=== PATIENT | female | born 2000 | race Caucasian/White ===

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

== ENCOUNTER 2018-06-05 09:16 | Emergency (ER) | payer BC ==
[2018-06-05 09:30] VITALS: BP 128/73
[2018-06-05] MEDS ORDERED: Sodium Chloride 0.9% 10 ML Syringe FLUSH PRN (09:32)
--- NOTE | 2018-06-05 09:42 | EDM.PDOC ---
ED HPI GENERAL MEDICAL PROBLEM - General Chief Complaint: Cardiovascular Problem Stated Complaint: HEART RACING / PG Time Seen by Provider: 06/05/18 09:25 Source of Information: Reports: Patient, Family, RN, RN Notes Reviewed History Limitations: Reports: No Limitations - History of Present Illness INITIAL COMMENTS - FREE TEXT/NARRATIVE: Pt to ER with her mother with c/o heart racing and numbness to the right side of her face when the heart begins to race. She states she also has a sharp pain in right side of the neck (carotid area) when the heart begins to bound as well. She states this began 3 days ago, and today has gotten worse, as it woke her up. She states she had brain surgery in December at [facility], Chiari decompression. Her mother states that the symptoms she is presenting with today are similar to the symptoms she was having prior to finding the chiari malformation. Patient also states she is approx. 11 weeks . She states LMP was 7-1-18. Patient denies recent illness, headaches, fever or chills, chest pains, or SOB. Denies N/V/D. Patient states she has had problems with anxiety in the past, but not recently. Patient denies numbness or tingling down the arms or hands. She states she does have numbness and tingling down the lower extremities at times but that is residual from surgery. Onset: Gradual Onset Date: 06/02/18 Quality: Reports: Sharp Severity: Moderate Improves with: Reports: None Worsens with: Reports: None Associated Symptoms: Reports: No Other Symptoms - Related Data Allergies Allergy/AdvReac Type Severity Reaction Status Date / Time codeine Allergy Vomiting Verified 06/05/18 09:45 Home Meds: Home Meds Pnv No.122/Iron/Folic Acid [ Multi Tablet] 1 tab PO DAILY 06/05/18 [ History] Past Medical History HEENT History: Reports: None Cardiovascular History: Reports: Other (See Below) Other Cardiovascular History: P.O.T.S. 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 CONTROL CLERK History: Reports: , Other (See Below) Other INVENTORY CONTROL CLERK History: pt states shes 11 weeks Musculoskeletal History: Reports: Other (See Below) Other Musculoskeletal History: RLE PAIN ANKLE/HEEL/FOOT FOR LAST 3 YEARS 12.31.15 Neurological History: Reports: Other (See Below) Other Neuro History: CHIARI, hx brain surgery Psychiatric History: Reports: None Endocrine/Metabolic History: Reports: None Hematologic History: Reports: Anemia Immunologic History: Reports: None Oncologic (Cancer) History: Reports: None Dermatologic History: Reports: Cellulitis, Other (See Below) Other Dermatologic History: ACNE; CELLULITUS OF FINGER - Infectious Disease History Infectious Disease History: Reports: None - Past Surgical History HEENT Surgical History: Reports: Adenoidectomy, Tonsillectomy Musculoskeletal Surgical History: Reports: Other (See Below) Dermatological Surgical History: Reports: Other (See Below) Social & Family History - Family History Family Medical History: Noncontributory - Caffeine Use Caffeine Use: Reports: Soda - Living Situation & Occupation Living situation: Reports: with Family Occupation: Student ED ROS GENERAL - Review of Systems Review Of Systems: ROS reveals no pertinent complaints other than HPI. ED EXAM, GENERAL - Physical Exam Exam: See Below Exam Limited By: No Limitations General Appearance: Alert, WD/WN, No Apparent Distress Eye Exam: Bilateral Eye: EOMI, Normal Inspection, PERRL (5 brisk, bilat) Ears: Normal External Exam, Hearing Grossly Normal Nose: Normal Inspection, Normal Mucosa, No Blood Throat/Mouth: Normal Inspection, Normal Lips, Normal Teeth, Normal Gums, Normal Oropharynx, Normal Voice, No Airway Compromise Head: Atraumatic, Normocephalic Neck: Normal Inspection, Supple, Non-Tender, Full Range of Motion, Other ( Patient states the sharp pain is relieved with pressure. ). No: Carotid Bruit, Lymphadenopathy (L), Lymphadenopathy (R) Respiratory/Chest: No Respiratory Distress, Lungs Clear, Normal Breath Sounds, No Accessory Muscle Use, Chest Non-Tender, Respiratory Distress Cardiovascular: Normal Peripheral Pulses, Regular Rate, Rhythm, No Edema, No Gallop, No JVD, No Murmur, No Rub, Tachycardia Peripheral Pulses: 2+: Radial (L), Radial (R) GI/Abdominal: Normal Bowel Sounds, Soft, Non-Tender (Female) Exam: Deferred Rectal (Female) Exam: Deferred Back Exam: Normal Inspection, Full Range of Motion Extremities: Normal Inspection, Normal Range of Motion, Non-Tender, No Pedal Edema, Normal Capillary Refill Neurological: Alert, Oriented, Normal Cognition, Normal Gait, Normal Reflexes, No Motor/Sensory Deficits Psychiatric: Normal Affect, Normal Mood, Anxious Skin Exam: Warm, Dry, Intact, Normal Color, No Rash Lymphatic: No Adenopathy EKG INTERPRETATION EKG Date: 06/05/18 Time: 09:33 Rhythm: Other (sinus tachycardia with PVC's) Rate (Beats/Min): 105 [place]: Normal P-Wave: Present QRS: Normal ST-T: Normal QT: Normal Comparison: Change From Previous EKG Course - Vital Signs Last Recorded V/S: Last Vital Signs Temp 97.9 F 06/05/18 09:28 Pulse 128 H 06/05/18 09:28 Resp 16 06/05/18 09:28 BP 128/73 06/05/18 09:28 Pulse Ox 98 06/05/18 09:28 - Orders/Labs/Meds Orders: Active Orders 24 hr Category Date Time Status EKG Documentation Completion [RC] STAT Care 06/05/18 09:32 Active Peripheral IV Care [RC] . DIRECTED Care 06/05/18 09:33 Active Head wo Cont [CT] Stat Exams 06/05/18 09:51 Ordered Sodium Chloride 0.9% [Saline Flush] Med 06/05/18 09:32 Active 10 ml FLUSH ASDIRECTED PRN Peripheral IV Insertion Adult [OM.PC] Stat Oth 06/05/18 09:32 Ordered Medication Orders Sodium Chloride (Saline Flush) 10 ml FLUSH ASDIRECTED PRN PRN Reason: Keep Vein Open Last Admin: 06/05/18 09:47 Dose: 10 ml Labs: Laboratory Tests 06/05/18 06/05/18 06/05/18 Range/Units 09:47 09:47 09:47 WBC (5.0-10.0) 10^3/uL RBC (4.2-5.4) 10^6/uL Hgb (12.0-16.0) g/dL Hct (37.0-47.0) % MCV (80-100) fL MCH (27.0-34.0) pg MCHC (33.0-35.0) g/dL Plt Count (150-450) 10^3/uL Neut % (Auto) (42.2-75.2) % Lymph % (Auto) (20.5-50.1) % [place] % (Auto) (2-8) % Eos % (Auto) (1.0-3.0) % Baso % (Auto) (0.0-1.0) % ESR 14 (0-20) mm/hr Sodium 135 (135-145) mmol/L Potassium 3.2 L (3.6-5.0) mmol/L Chloride 104 (101-111) mmol/L Carbon Dioxide 20.0 L (21.0-31.0) mmol/L Anion Gap 14.2 BUN 6 L (7-18) mg/dL Creatinine 0.5 L (0.6-1.3) mg/dL Est Cr Clr Drug Dosing 175.99 mL/min Estimated GFR (MDRD) > 60 BUN/Creatinine Ratio 12.00 Glucose 123 H (74-105) mg/dL Calcium 9.0 (8.4-10.2) mg/dl Total Bilirubin 0.7 (0.2-1.0) mg/dL AST 24 (10-42) IU/L ALT 10 (10-60) IU/L Alkaline Phosphatase 57 (42-121) IU/L C-Reactive Protein 0.8 (0.0-1.3) mg/dL B-Natriuretic Peptide 19 (0-100) pg/ml Total Protein 6.9 (6.7-8.2) g/dl Albumin 4.0 (3.2-5.5) g/dl Globulin 2.9 Albumin/Globulin Ratio 1.38 Urine Color (YELLOW) Urine Appearance (CLEAR) Urine pH (5.0-9.0) Ur Specific [place] (1.005-1.030) Urine Protein (NEGATIVE) Urine Glucose (UA) (NEGATIVE) Urine Ketones (NEGATIVE) Urine Occult Blood (NEGATIVE) Urine Nitrite (NEGATIVE) Urine Bilirubin (NEGATIVE) Urine Urobilinogen (0.2-1.0) mg/dL Ur Leukocyte Esterase (NEGATIVE) Urine RBC /HPF Urine WBC (0-5/HPF) /HPF Ur Epithelial Cells /HPF Amorphous Sediment (0/HPF) /HPF Urine Bacteria (0-FEW/HPF) /HPF Urine HCG, Qual Urine Opiates Screen (NEGATIVE) Ur Oxycodone Screen (NEGATIVE) Urine Methadone Screen (NEGATIVE) Ur Barbiturates Screen (NEGATIVE) U Tricyclic Antidepress (NEGATIVE) Ur Phencyclidine Scrn (NEGATIVE) Ur Amphetamine Screen (NEGATIVE) U Methamphetamines Scrn (NEGATIVE) Urine MDMA Screen (NEGATIVE) U Benzodiazepines Scrn (NEGATIVE) Urine Cocaine Screen (NEGATIVE) U Marijuana (THC) Screen (NEGATIVE) Ethyl Alcohol < 5 mg/dL 06/05/18 06/05/18 06/05/18 Range/Units 09:47 10:27 10:30 WBC 8.3 (5.0-10.0) 10^3/uL RBC 4.12 L (4.2-5.4) 10^6/uL Hgb 12.4 (12.0-16.0) g/dL Hct 36.1 L (37.0-47.0) % MCV 87.6 (80-100) fL MCH 30.1 (27.0-34.0) pg MCHC 34.3 (33.0-35.0) g/dL Plt Count 302 (150-450) 10^3/uL Neut % (Auto) 74.9 (42.2-75.2) % Lymph % (Auto) 18.6 L (20.5-50.1) % Osborne % (Auto) 5.7 (2-8) % Eos % (Auto) 0.7 L (1.0-3.0) % Baso % (Auto) 0.1 (0.0-1.0) % ESR (0-20) mm/hr Sodium (135-145) mmol/L Potassium (3.6-5.0) mmol/L Chloride (101-111) mmol/L Carbon Dioxide (21.0-31.0) mmol/L Anion Gap BUN (7-18) mg/dL Creatinine (0.6-1.3) mg/dL Est Cr Clr Drug Dosing mL/min Estimated GFR (MDRD) BUN/Creatinine Ratio Glucose (74-105) mg/dL Calcium (8.4-10.2) mg/dl Total Bilirubin (0.2-1.0) mg/dL AST (10-42) IU/L ALT (10-60) IU/L Alkaline Phosphatase (42-121) IU/L C-Reactive Protein (0.0-1.3) mg/dL B-Natriuretic Peptide (0-100) pg/ml Total Protein (6.7-8.2) g/dl Albumin (3.2-5.5) g/dl Globulin Albumin/Globulin Ratio Urine Color Yellow (YELLOW) Urine Appearance Clear (CLEAR) Urine pH 7.5 (5.0-9.0) Ur Specific [place] 1.015 (1.005-1.030) Urine Protein Negative (NEGATIVE) Urine Glucose (UA) Negative (NEGATIVE) Urine Ketones Negative (NEGATIVE) Urine Occult Blood Trace-intact H (NEGATIVE) Urine Nitrite Negative (NEGATIVE) Urine Bilirubin Negative (NEGATIVE) Urine Urobilinogen 0.2 (0.2-1.0) mg/dL Ur Leukocyte Esterase Negative (NEGATIVE) Urine RBC 0-5 /HPF Urine WBC Not seen (0-5/HPF) /HPF Ur Epithelial Cells Rare /HPF Amorphous Sediment Few (0/HPF) /HPF Urine Bacteria Rare (0-FEW/HPF) /HPF Urine HCG, Qual Positive Urine Opiates Screen (NEGATIVE) Ur Oxycodone Screen (NEGATIVE) Urine Methadone Screen (NEGATIVE) Ur Barbiturates Screen (NEGATIVE) U Tricyclic Antidepress (NEGATIVE) Ur Phencyclidine Scrn (NEGATIVE) Ur Amphetamine Screen (NEGATIVE) U Methamphetamines Scrn (NEGATIVE) Urine MDMA Screen (NEGATIVE) U Benzodiazepines Scrn (NEGATIVE) Urine Cocaine Screen (NEGATIVE) U Marijuana (THC) Screen (NEGATIVE) Ethyl Alcohol mg/dL 06/05/18 Range/Units 10:30 WBC (5.0-10.0) 10^3/uL RBC (4.2-5.4) 10^6/uL Hgb (12.0-16.0) g/dL Hct (37.0-47.0) % MCV (80-100) fL MCH (27.0-34.0) pg MCHC (33.0-35.0) g/dL Plt Count (150-450) 10^3/uL Neut % (Auto) (42.2-75.2) % Lymph % (Auto) (20.5-50.1) % [place] % (Auto) (2-8) % Eos % (Auto) (1.0-3.0) % Baso % (Auto) (0.0-1.0) % ESR (0-20) mm/hr Sodium (135-145) mmol/L Potassium (3.6-5.0) mmol/L Chloride (101-111) mmol/L Carbon Dioxide (21.0-31.0) mmol/L Anion Gap BUN (7-18) mg/dL Creatinine (0.6-1.3) mg/dL Est Cr Clr Drug Dosing mL/min Estimated GFR (MDRD) BUN/Creatinine Ratio Glucose (74-105) mg/dL Calcium (8.4-10.2) mg/dl Total Bilirubin (0.2-1.0) mg/dL AST (10-42) IU/L ALT (10-60) IU/L Alkaline Phosphatase (42-121) IU/L C-Reactive Protein (0.0-1.3) mg/dL B-Natriuretic Peptide (0-100) pg/ml Total Protein (6.7-8.2) g/dl Albumin (3.2-5.5) g/dl Globulin Albumin/Globulin Ratio Urine Color (YELLOW) Urine Appearance (CLEAR) Urine pH (5.0-9.0) Ur Specific [place] (1.005-1.030) Urine Protein (NEGATIVE) Urine Glucose (UA) (NEGATIVE) Urine Ketones (NEGATIVE) Urine Occult Blood (NEGATIVE) Urine Nitrite (NEGATIVE) Urine Bilirubin (NEGATIVE) Urine Urobilinogen (0.2-1.0) mg/dL Ur Leukocyte Esterase (NEGATIVE) Urine RBC /HPF Urine WBC (0-5/HPF) /HPF Ur Epithelial Cells /HPF Amorphous Sediment (0/HPF) /HPF Urine Bacteria (0-FEW/HPF) /HPF Urine HCG, Qual Urine Opiates Screen Negative (NEGATIVE) Ur Oxycodone Screen Negative (NEGATIVE) Urine Methadone Screen Negative (NEGATIVE) Ur Barbiturates Screen Negative (NEGATIVE) U Tricyclic Antidepress Negative (NEGATIVE) Ur Phencyclidine Scrn Negative (NEGATIVE) Ur Amphetamine Screen Negative (NEGATIVE) U Methamphetamines Scrn Negative (NEGATIVE) Urine MDMA Screen Negative (NEGATIVE) U Benzodiazepines Scrn Negative (NEGATIVE) Urine Cocaine Screen Negative (NEGATIVE) U Marijuana (THC) Screen Negative (NEGATIVE) Ethyl Alcohol mg/dL Meds: Medications Generic Name Dose Route Start Last Admin Trade Name Freq PRN Reason Stop Dose Admin Sodium Chloride 10 ml 06/05/18 09:32 06/05/18 09:47 Saline Flush FLUSH 10 ml ASDIRECTED PRN Administration Keep Vein Open Discontinued Medications Generic Name Dose Route Start Last Admin Trade Name Freq PRN Reason Stop Dose Admin Sodium Chloride 1,000 mls @ 999 mls/hr 06/05/18 09:44 06/05/18 09:47 Normal Saline IV 06/05/18 10:44 999 mls/hr .BOLUS ONE Administration - Re-Assessments/Exams Free Text/Narrative Re-Assessment/Exam: 06/05/18 11:17 Discussed Patient case with Dr. Thacker in Neurosurgery at [facility]. He discussed the patient case with the Neurosurgery team and states and MRI/MRA of the head and neck would be appropriate today or tomorrow. The patient does not have a PCP here in [place], and has just recently established care with Dr. Murdock, whom is out of the office for 2 weeks. Discussed patient case with Dr. Clayton in pediatrics at [facility] who states the patient should be seen by Rabia Adam at [facility] tomorrow AM. She has also been scheduled for MRI/MRA. Patient and mother agree to the proceeding appointments and plans and state understanding. Departure - Departure Time of Disposition: 11:20 Disposition: Home, Self-Care 01 Condition: Fair Clinical Impression: Tachycardia, Numbness and tingling of right face, POTS (postural orthostatic tachycardia syndrome) Qualifiers: Weeks of gestation: 11 weeks Qualified Code(s): Z3A.11 - 11 weeks gestation of Forms: ED Department Discharge Additional Instructions: Follow up with Rabia Adam at [facility] tomorrow AM at 8AM. Drink plenty of water Present to the nearest ER if any symptoms worsen. - My Orders Last 24 Hours: My Active Orders 06/05/18 09:32 EKG Documentation Completion [RC] STAT Sodium Chloride 0.9% [Saline Flush] 10 ml FLUSH ASDIRECTED PRN Peripheral IV Insertion Adult [OM.PC] Stat 06/05/18 09:33 Peripheral IV Care [RC] . DIRECTED 06/05/18 09:51 Head wo Cont [CT] Stat - Assessment/Plan Last 24 Hours: My Active Orders 06/05/18 09:32 EKG Documentation Completion [RC] STAT Sodium Chloride 0.9% [Saline Flush] 10 ml FLUSH ASDIRECTED PRN Peripheral IV Insertion Adult [OM.PC] Stat 06/05/18 09:33 Peripheral IV Care [RC] . DIRECTED 06/05/18 09:51 Head wo Cont [CT] Stat
[2018-06-05] MEDS ORDERED: Sodium Chloride 0.9% 1,000 ML IV ONE (09:44)
[2018-06-05 10:12] LABS: ANION GAP 14.2; CHLORIDE,CL 104 mmol/L (101-111); SODIUM,NA 135 mmol/L (135-145)
--- NOTE | 2018-06-08 14:13 | EKG ---
06/05/2018 - ESSENCE ZAMORA - TIME: 9:33 a.m. FINDINGS: As per reading, sinus tachycardia at 105. MOD /[id number]
--- NOTE | 2018-06-08 14:25 | EKG ---
06/05/2018 - ESSENCE ZAMORA - TIME: 9:33 p.m. FINDINGS: Sinus tachycardia with multiple ventricular premature complexes. [facility] /[id number]
== END 2018-06-05 11:31 | disposition home or self-care (01) ==
LOC: DL.ED 09:16
DX: O99.511 Diseases of the respiratory system complicating pregnancy, first trimester (principal); I49.8 Other specified cardiac arrhythmias; O99.89 Other specified diseases and conditions complicating pregnancy, childbirth and the puerperium; R20.0 Anesthesia of skin; Z88.5 Allergy status to narcotic agent; Z3A.11 11 weeks gestation of pregnancy
CPT/HCPCS: 36415; 80053; 80305; 81001; 81025; 83880; 85025; 85651; 86140; 93005; 96360; 96361; 99285; G0480; J7030; J7050

== ENCOUNTER 2019-01-04 19:31 | Emergency (ER) | payer BC ==
[2019-01-04] MEDS ORDERED: Ondansetron 4 MG/2 ML SDV IV ONE (20:18)
[2019-01-04] MEDS ORDERED: fentaNYL 100 MCG/2 ML SDV IVPUSH ONE ×2 (20:18→22:45)
[2019-01-04] MEDS ORDERED: Sodium Chloride 0.9% 1,000 ML IV ONE (20:18)
--- NOTE | 2019-01-04 20:23 | EDM.PDOC ---
ED HPI GENERAL MEDICAL PROBLEM - General Chief Complaint: Fever Stated Complaint: C SECTION , HIGH FEVER [id number] Time Seen by Provider: 01/04/19 20:19 Source of Information: Reports: Patient History Limitations: Reports: No Limitations - History of Present Illness INITIAL COMMENTS - FREE TEXT/NARRATIVE: s/p Saturday, was doing fine till back pain problem got worse, today developed fever. appetite normal without vomiting Lower Back Pain Score (Numeric/FACES): 6 - Related Data Allergies Allergy/AdvReac Type Severity Reaction Status Date / Time codeine Allergy Vomiting Verified 01/04/19 20:46 hydrocodone Allergy Vomiting Verified 01/04/19 20:46 hydromorphone Allergy Vomiting Verified 01/04/19 20:46 Home Meds: Home Meds Acetaminophen [Tylenol Extra Strength] 500 mg PO DAILY PRN 12/17/18 [History] Past Medical History HEENT History: Reports: None Cardiovascular History: Reports: Other (See Below) Other Cardiovascular History: P.O.T.S. 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[employer] GATE CUTTER History: Reports: , Other (See Below) Other GATE CUTTER History: pt states shes 11 weeks Musculoskeletal History: Reports: Other (See Below) Other Musculoskeletal History: RLE PAIN ANKLE/HEEL/FOOT FOR LAST 3 YEARS 12.31.15 Neurological History: Reports: Other (See Below) Other Neuro History: CHIARI, hx brain surgery Psychiatric History: Reports: Anxiety Endocrine/Metabolic History: Reports: None Hematologic History: Reports: Anemia Immunologic History: Reports: None Oncologic (Cancer) History: Reports: None Dermatologic History: Reports: Cellulitis, Other (See Below) Other Dermatologic History: ACNE; CELLULITUS OF FINGER - Infectious Disease History Infectious Disease History: Reports: None - Past Surgical History Head Surgeries/Procedures: Reports: None HEENT Surgical History: Reports: Adenoidectomy, Tonsillectomy Cardiovascular Surgical History: Reports: None Female Surgical History: Reports: None Musculoskeletal Surgical History: Reports: Other (See Below) Oncologic Surgical History: Reports: None Dermatological Surgical History: Reports: Other (See Below) Social & Family History - Family History Family Medical History: Noncontributory - Caffeine Use Caffeine Use: Reports: Soda - Living Situation & Occupation Living situation: Reports: with Family Occupation: Student ED ROS GENERAL - Review of Systems Review Of Systems: ROS reveals no pertinent complaints other than HPI. ED EXAM, GENERAL - Physical Exam Exam: See Below Exam Limited By: No Limitations General Appearance: Alert, WD/WN, Mild Distress, Other (discomfort, tearful) Ears: Hearing Grossly Normal Throat/Mouth: Normal Voice, No Airway Compromise Head: Atraumatic Neck: Non-Tender, Full Range of Motion Respiratory/Chest: No Respiratory Distress Cardiovascular: Regular Rate, Rhythm GI/Abdominal: Other ( scar without s/s cellulitis) Neurological: Alert, Oriented, Normal Cognition, Normal Gait, No Motor/Sensory Deficits Psychiatric: Tearful Skin Exam: Warm, Dry, Normal Color Lymphatic: No Adenopathy Course - Vital Signs Last Recorded V/S: Last Vital Signs Temp 37.1 C 01/04/19 23:48 Pulse 111 H 01/04/19 23:48 Resp 17 01/04/19 23:48 BP 126/69 01/04/19 23:48 Pulse Ox 96 01/04/19 23:48 - Orders/Labs/Meds Orders: Active Orders 24 hr Category Date Time Status CULTURE BLOOD [BC] Stat Lab 01/04/19 20:18 Received CULTURE URINE [RM] Stat Lab 01/04/19 21:30 Received Sodium Chloride 0.9% [Normal Saline] 1,000 ml Med 01/04/19 22:15 Active IV ASDIRECTED cefTRIAXone [Rocephin] 1 gm Med 01/05/19 00:21 Ordered Sodium Chloride 0.9% [Normal Saline] 50 ml IV ONETIME Medication Orders Sodium Chloride (Normal Saline) 1,000 mls @ 500 mls/hr IV ASDIRECTED LA Last Admin: 01/04/19 22:38 Dose: 500 mls/hr Labs: Laboratory Tests 01/04/19 01/04/19 01/04/19 Range/Units 20:18 20:18 20:18 WBC 10.5 H (5.0-10.0) 10^3/uL RBC 3.47 L (4.2-5.4) 10^6/uL Hgb 9.1 L D (12.0-16.0) g/dL Hct 28.6 L (37.0-47.0) % MCV 82.4 D (80-100) fL MCH 26.2 L (27.0-34.0) pg MCHC 31.8 L (33.0-35.0) g/dL Plt Count 281 (150-450) 10^3/uL Neut % (Auto) 80.8 H (42.2-75.2) % Lymph % (Auto) 11.1 L (20.5-50.1) % Crosby % (Auto) 6.6 (2-8) % Eos % (Auto) 1.2 (1.0-3.0) % Baso % (Auto) 0.3 (0.0-1.0) % Add Manual Diff Yes Neutrophils % (Manual) 82 H (42-75) % Lymphocytes % (Manual) 13 L (20-50) % Monocytes % (Manual) 4 (2-8) % Eosinophils % (Manual) 1 (1-3) % Sodium 135 (135-145) mmol/L Potassium 3.3 L (3.6-5.0) mmol/L Chloride 103 (101-111) mmol/L Carbon Dioxide 20.0 L (21.0-31.0) mmol/L Anion Gap 15.3 BUN 9 (7-18) mg/dL Creatinine 0.7 (0.6-1.3) mg/dL Est Cr Clr Drug Dosing TNP Estimated GFR (MDRD) > 60 BUN/Creatinine Ratio 12.85 Glucose 97 (74-105) mg/dL Lactic Acid 1.8 (0.5-2.2) mmol/L Calcium 8.8 (8.4-10.2) mg/dl Total Bilirubin 0.5 (0.2-1.0) mg/dL AST 23 (10-42) IU/L ALT 17 (10-60) IU/L Alkaline Phosphatase 102 (42-121) IU/L Total Protein 6.1 L (6.7-8.2) g/dl Albumin 2.9 L (3.2-5.5) g/dl Globulin 3.2 Albumin/Globulin Ratio 0.91 Urine Color (YELLOW) Urine Appearance (CLEAR) Urine pH (5.0-9.0) Ur Specific Barbeau (1.005-1.030) Urine Protein (NEGATIVE) Urine Glucose (UA) (NEGATIVE) Urine Ketones (NEGATIVE) Urine Occult Blood (NEGATIVE) Urine Nitrite (NEGATIVE) Urine Bilirubin (NEGATIVE) Urine Urobilinogen (0.2-1.0) mg/dL Ur Leukocyte Esterase (NEGATIVE) Urine RBC /HPF Urine WBC (0-5/HPF) /HPF Ur Epithelial Cells /HPF Urine Bacteria (0-FEW/HPF) /HPF Urine Mucus /LPF Urinalysis Comment 01/04/19 Range/Units 21:30 WBC (5.0-10.0) 10^3/uL RBC (4.2-5.4) 10^6/uL Hgb (12.0-16.0) g/dL Hct (37.0-47.0) % MCV (80-100) fL MCH (27.0-34.0) pg MCHC (33.0-35.0) g/dL Plt Count (150-450) 10^3/uL Neut % (Auto) (42.2-75.2) % Lymph % (Auto) (20.5-50.1) % Crosby % (Auto) (2-8) % Eos % (Auto) (1.0-3.0) % Baso % (Auto) (0.0-1.0) % Add Manual Diff Neutrophils % (Manual) (42-75) % Lymphocytes % (Manual) (20-50) % Monocytes % (Manual) (2-8) % Eosinophils % (Manual) (1-3) % Sodium (135-145) mmol/L Potassium (3.6-5.0) mmol/L Chloride (101-111) mmol/L Carbon Dioxide (21.0-31.0) mmol/L Anion Gap BUN (7-18) mg/dL Creatinine (0.6-1.3) mg/dL Est Cr Clr Drug Dosing Estimated GFR (MDRD) BUN/Creatinine Ratio Glucose (74-105) mg/dL Lactic Acid (0.5-2.2) mmol/L Calcium (8.4-10.2) mg/dl Total Bilirubin (0.2-1.0) mg/dL AST (10-42) IU/L ALT (10-60) IU/L Alkaline Phosphatase (42-121) IU/L Total Protein (6.7-8.2) g/dl Albumin (3.2-5.5) g/dl Globulin Albumin/Globulin Ratio Urine Color Yellow (YELLOW) Urine Appearance Slightly cloudy (CLEAR) Urine pH 8.5 (5.0-9.0) Ur Specific [place] 1.015 (1.005-1.030) Urine Protein Negative (NEGATIVE) Urine Glucose (UA) Negative (NEGATIVE) Urine Ketones Negative (NEGATIVE) Urine Occult Blood Large H (NEGATIVE) Urine Nitrite Negative (NEGATIVE) Urine Bilirubin Negative (NEGATIVE) Urine Urobilinogen 0.2 (0.2-1.0) mg/dL Ur Leukocyte Esterase Small H (NEGATIVE) Urine RBC 30-40 H /HPF Urine WBC 10-20 H (0-5/HPF) /HPF Ur Epithelial Cells Moderate H /HPF Urine Bacteria Moderate H (0-FEW/HPF) /HPF Urine Mucus Few H /LPF Urinalysis Comment Meds: Medications Generic Name Dose Route Start Last Admin Trade Name Freq PRN Reason Stop Dose Admin Sodium Chloride 1,000 mls @ 500 mls/hr 01/04/19 22:15 01/04/19 22:38 Normal Saline IV 500 mls/hr ASDIRECTED LA Administration Discontinued Medications Generic Name Dose Route Start Last Admin Trade Name Freq PRN Reason Stop Dose Admin Acetaminophen 325 mg 01/04/19 20:55 01/04/19 21:06 Tylenol PO 01/04/19 20:56 325 mg NOW ONE Administration Fentanyl 25 mcg 01/04/19 20:18 01/04/19 21:45 Sublimaze IVPUSH 01/04/19 20:19 Not Given ONETIME ONE Fentanyl 50 mcg 01/04/19 20:57 01/04/19 21:05 Sublimaze IM 01/04/19 20:58 50 mcg ONETIME ONE Administration Fentanyl 25 mcg 01/04/19 22:45 01/04/19 22:49 Sublimaze IVPUSH 01/04/19 22:46 25 mcg ONETIME ONE Administration Sodium Chloride 1,000 mls @ 999 mls/hr 01/04/19 20:18 01/04/19 21:12 Normal Saline IV 01/04/19 21:18 999 mls/hr .BOLUS ONE Administration Ibuprofen 600 mg 01/04/19 22:11 01/04/19 22:26 Motrin PO 01/04/19 22:12 600 mg ONETIME ONE Administration Iopamidol 100 ml 01/04/19 21:54 01/04/19 22:04 Isovue-300 (61%) IVPUSH 01/04/19 21:55 100 ml ONETIME ONE Administration Morphine Sulfate 4 mg 01/04/19 23:32 01/04/19 23:42 Morphine IVPUSH 01/04/19 23:33 4 mg ONETIME ONE Administration Ondansetron HCl 4 mg 01/04/19 20:18 01/04/19 21:15 Zofran IV 01/04/19 20:19 4 mg ONETIME ONE Administration - Re-Assessments/Exams Free Text/Narrative Re-Assessment/Exam: 01/05/19 00:[address] Almeida [facility] @ who kindly accepted pt as a consult. Dr Marlow admitted pt. Departure - Departure Time of Disposition: 00:23 ( ) Disposition: DC/Tfer to [facility] 02 Condition: Fair Clinical Impression: Hydroureteronephrosis UTI (urinary tract infection) Qualifiers: Urinary tract infection type: site unspecified Hematuria presence: with hematuria Qualified Code(s): N39.0 - Urinary tract infection, site not specified ; R31.9 - Hematuria, unspecified - Discharge Information Forms: Interfacility Transfer EMTALA - My Orders Last 24 Hours: My Active Orders 01/04/19 20:18 CULTURE BLOOD [BC] Stat 01/04/19 21:30 CULTURE URINE [RM] Stat 01/04/19 22:15 Sodium Chloride 0.9% [Normal Saline] 1,000 ml IV ASDIRECTED 01/05/19 00:21 cefTRIAXone [Rocephin] 1 gm Sodium Chloride 0.9% [Normal Saline] 50 ml IV ONETIME - Assessment/Plan Last 24 Hours: My Active Orders 01/04/19 20:18 CULTURE BLOOD [BC] Stat 01/04/19 21:30 CULTURE URINE [RM] Stat 01/04/19 22:15 Sodium Chloride 0.9% [Normal Saline] 1,000 ml IV ASDIRECTED 01/05/19 00:21 cefTRIAXone [Rocephin] 1 gm Sodium Chloride 0.9% [Normal Saline] 50 ml IV ONETIME
[2019-01-04 20:47] LABS: ANION GAP 15.3; CHLORIDE,CL 103 mmol/L (101-111); SODIUM,NA 135 mmol/L (135-145)
[2019-01-04] MEDS ORDERED: Acetaminophen 325 MG Tab PO ONE (20:55)
[2019-01-04] MEDS ORDERED: fentaNYL 100 MCG/2 ML SDV IM ONE (20:57)
--- NOTE | 2019-01-04 21:22 | PCM.PRNOTE ---
- Free Text/Narrative Note: Consulted by ED to insert an IV on a patient who has had multiple attempts by RN. Upon entering room, pt is lying on a stretcher with c/o back pain. A tourniquet was applied to the left forearm. The left wrist was cleaned with alcohol. Using a 22 gauge angiocath, an IV was inserted into the left wrist ( radial) on first attempt. Excellent blood return. IV flushes without difficulty. IV was covered with tegaderm and secured with tape. RN was notified. Procedure Date and Time: 01/04/[id number]
[2019-01-04] MEDS ORDERED: Iopamidol 612 MG/ML 100 ML Bottle IVPUSH ONE (21:54)
[2019-01-04] MEDS ORDERED: Ibuprofen 600 MG Tab PO ONE (22:11)
[2019-01-04] MEDS ORDERED: Sodium Chloride 0.9% 1,000 ML IV SCH (22:15)
[2019-01-04] MEDS ORDERED: Morphine 4 MG/ML Syringe IVPUSH ONE (23:32)
[2019-01-05] MEDS ORDERED: cefTRIAXone 1 GM in Sodium Chloride 0.9% 50 ML IV ONE (00:21)
[2019-01-05 00:36] VITALS: BP 126/78
[2019-01-05] MEDS ORDERED: Morphine 4 MG/ML Syringe IVPUSH ONE (01:15)
[2019-01-05] MEDS ORDERED: Sodium Chloride 0.9% 1,000 ML IV SCH (02:00)
== END 2019-01-05 02:11 ==
LOC: DL.ED 19:31
DX: O86.20 Urinary tract infection following delivery, unspecified (principal); O99.89 Other specified diseases and conditions complicating pregnancy, childbirth and the puerperium; N13.2 Hydronephrosis with renal and ureteral calculous obstruction; Z79.899 Other long term (current) drug therapy; Z88.5 Allergy status to narcotic agent; Z88.6 Allergy status to analgesic agent
CPT/HCPCS: 36415; 74177; 80053; 81001; 83605; 85025; 87040; 87086; 96361; 96372; 96374; 96375; 96376; 99283-25; A9270-GY; J0696; J2270; J2405; J3010; J7030; J7050; Q9967

== ENCOUNTER 2019-03-03 09:24 | Emergency (ER) | payer BC ==
[~2019-03-03 09:24] MED LIST: Dexamethasone 4 MG/ML SDV IVPUSH ONE; Morphine 4 MG/ML Syringe IVPUSH ONE; Ondansetron 4 MG/2 ML SDV IV ONE; Sodium Chloride 0.9% 1,000 ML IV ONE; Sodium Chloride 0.9% 10 ML Syringe FLUSH PRN
--- NOTE | 2019-03-03 09:30 | EDM.PDOC ---
<Ivette Alfaro - Last Filed: 03/03/19 14:41> ED HPI GENERAL MEDICAL PROBLEM - General Chief Complaint: Headache Stated Complaint: Severe headache Time Seen by Provider: 03/03/19 09:24 Source of Information: Reports: Patient, EMS History Limitations: Reports: No Limitations - History of Present Illness INITIAL COMMENTS - FREE TEXT/NARRATIVE: Patient arrives to ER with CC of sudden onset headache. Patient reports that she had just clocked into work when she started to feel dizzy. Patient states that she then "Tripped' at work and "almita her neck", but denies any injury or hitting her head. Patient denies any nausea/vomiting, recent illness, vision changes,trauma, numbness/tingling of extremities. Patient reports that pain is primarily located to the base of her skull into her neck, rates "07/02". Patient has hx of POTS, Chiari Malformation with surgical repair (01/08), migraine headaches, and recent diagnosis of pituitary tumor. Patient reports that this headache is different than previous headaches, because she "didn't feel good before". According to patient's mother, Liya, she has been experiencing headaches recently for past several weeks and has been in contact with her surgeon in [place], Dr. Lucero. Per mothers report patient's headaches have been increasing in frequency, duration, and intensity. Patient was previous smoker, quit when finding out she was in 2018. Delivered C- Section 12/29/2018. Dr. Lucero contact information: [phone] Onset: Today Onset Date: 03/03/19 Onset Time: 09:00 Location: Reports: Head (posterior base of skull), Neck Quality: Reports: Ache Severity: Severe Improves with: Reports: Other (knees bent) Treatments PEDIATRIC LPN: Reports: Other Medication(s) (Morphine 2mg enroute via paramedics) Neck Pain Score (Numeric/FACES): 9 - Related Data Allergies Allergy/AdvReac Type Severity Reaction Status Date / Time codeine Allergy Vomiting Verified 01/04/19 20:46 hydrocodone Allergy Vomiting Verified 01/04/19 20:46 hydromorphone Allergy Vomiting Verified 01/04/19 20:46 Home Meds: Home Meds Acetaminophen [Tylenol Extra Strength] 500 mg PO DAILY PRN 12/17/18 [History] Past Medical History HEENT History: Reports: None Cardiovascular History: Reports: Other (See Below) Other Cardiovascular History: P.O.T.S. 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CTER DYSSYNERGIA SLACKMAN History: Reports: , Other (See Below) Other SLACKMAN History: pt states shes 11 weeks Musculoskeletal History: Reports: Other (See Below) Other Musculoskeletal History: RLE PAIN ANKLE/HEEL/FOOT FOR LAST 3 YEARS 09.22.15 Neurological History: Reports: Other (See Below) Other Neuro History: CHIARI, hx brain surgery Psychiatric History: Reports: Anxiety Endocrine/Metabolic History: Reports: None Hematologic History: Reports: Anemia Immunologic History: Reports: None Oncologic (Cancer) History: Reports: None Dermatologic History: Reports: Cellulitis, Other (See Below) Other Dermatologic History: ACNE; CELLULITUS OF FINGER - Infectious Disease History Infectious Disease History: Reports: None - Past Surgical History Head Surgeries/Procedures: Reports: None HEENT Surgical History: Reports: Adenoidectomy, Tonsillectomy Cardiovascular Surgical History: Reports: None Female Surgical History: Reports: None Musculoskeletal Surgical History: Reports: Other (See Below) Oncologic Surgical History: Reports: None Dermatological Surgical History: Reports: Other (See Below) Social & Family History - Family History Family Medical History: Noncontributory - Caffeine Use Caffeine Use: Reports: Soda - Living Situation & Occupation Living situation: Reports: with Family Occupation: Student ED ROS GENERAL - Review of Systems Review Of Systems: ROS reveals no pertinent complaints other than HPI. - Physical Exam Exam: See Below Exam Limited By: No Limitations General Appearance: Alert, Anxious, Moderate Distress Eye Exam: Bilateral Eye: EOMI, Normal Inspection, Nystagmus (negative for nystagmus), PERRL, Vision Changes (negative for vision changes) Ears: Normal External Exam, Normal Canal, Hearing Grossly Normal, Normal TMs Nose: Normal Inspection, Normal Mucosa, No Blood Throat/Mouth: Normal Inspection, Normal Lips, Normal Teeth, Normal Gums, Normal Oropharynx, Normal Voice, No Airway Compromise Head Exam: Atraumatic, Normocephalic, Scalp Tenderness (posterior base of skull) Neck: Normal Inspection, Limited Range of Motion, Tender Lateral, Tender Midline Respiratory/Chest: Lungs Clear, Normal Breath Sounds, No Accessory Muscle Use, Chest Non-Tender, Other (tachypeic) Cardiovascular: Normal Peripheral Pulses, Regular Rate, Rhythm, No Edema, No Gallop, No JVD, No Murmur, No Rub GI/Abdominal: Normal Bowel Sounds, Soft, Non-Tender, No Organomegaly, No Distention, No Abnormal Bruit, No Mass, Other (c-sectio scar) Neuro Exam (Abbreviated): Alert, Oriented, CN II-XII Intact, Normal Cognition, Normal Gait, Normal Reflexes, No Motor/Sensory Deficits Back Exam: Normal Inspection, Full Range of Motion, NT Extremities: Normal Inspection, Normal Range of Motion, Non-Tender, No Pedal Edema, Normal Capillary Refill Psychiatric: Anxious, Tearful Skin Exam: Warm, Dry, Intact, Normal Color, No Rash Course - Vital Signs Last Recorded V/S: Last Vital Signs Temp 97.4 F 03/03/19 13:38 Pulse 81 03/03/19 13:38 Resp 18 03/03/19 13:38 BP 121/66 03/03/19 13:38 Pulse Ox 97 03/03/19 13:38 - Orders/Labs/Meds Orders: Active Orders 24 hr Category Date Time Status Peripheral IV Care [RC] . DIRECTED Care 03/03/19 09:18 Active Brain w Cont [MR] Stat Exams 03/03/19 09:53 Taken Cervical Spine Comp w Cont [MR] Stat Exams 03/03/19 10:24 Taken Sodium Chloride 0.9% [Saline Flush] Med 03/03/19 09:18 Active 10 ml FLUSH ASDIRECTED PRN Peripheral IV Insertion Adult [OM.PC] Stat Oth 03/03/19 09:17 Ordered Medication Orders Sodium Chloride (Saline Flush) 10 ml FLUSH ASDIRECTED PRN PRN Reason: Keep Vein Open Labs: Laboratory Tests 03/03/19 03/03/19 03/03/19 Range/Units 09:50 09:50 09:50 WBC 6.5 (5.0-10.0) 10^3/uL RBC 4.34 (4.2-5.4) 10^6/uL Hgb 10.6 L D (12.0-16.0) g/dL Hct 33.3 L (37.0-47.0) % MCV 76.7 L D (80-100) fL MCH 24.4 L (27.0-34.0) pg MCHC 31.8 L (33.0-35.0) g/dL Plt Count 270 (150-450) 10^3/uL Neut % (Auto) 55.8 (42.2-75.2) % Lymph % (Auto) 33.5 (20.5-50.1) % [place] % (Auto) 9.0 H (2-8) % Eos % (Auto) 1.4 (1.0-3.0) % Baso % (Auto) 0.3 (0.0-1.0) % Sodium 137 (135-145) mmol/L Potassium 3.9 (3.6-5.0) mmol/L Chloride 106 (101-111) mmol/L Carbon Dioxide 20.0 L (21.0-31.0) mmol/L Anion Gap 14.9 BUN 10 (7-18) mg/dL Creatinine 0.7 (0.6-1.3) mg/dL Est Cr Clr Drug Dosing 124.67 mL/min Estimated GFR (MDRD) > 60 BUN/Creatinine Ratio 14.28 Glucose 92 (74-105) mg/dL Calcium 9.0 (8.4-10.2) mg/dl Total Bilirubin 0.5 (0.2-1.0) mg/dL AST 28 (10-42) IU/L ALT 21 (10-60) IU/L Alkaline Phosphatase 67 (42-121) IU/L C-Reactive Protein 0.6 (0.0-1.3) mg/dL Total Protein 6.6 L (6.7-8.2) g/dl Albumin 3.9 (3.2-5.5) g/dl Globulin 2.7 Albumin/Globulin Ratio 1.44 Urine Color (YELLOW) Urine Appearance (CLEAR) Urine pH (5.0-9.0) Ur Specific [place] (1.005-1.030) Urine Protein (NEGATIVE) Urine Glucose (UA) (NEGATIVE) Urine Ketones (NEGATIVE) Urine Occult Blood (NEGATIVE) Urine Nitrite (NEGATIVE) Urine Bilirubin (NEGATIVE) Urine Urobilinogen (0.2-1.0) mg/dL Ur Leukocyte Esterase (NEGATIVE) Urine HCG, Qual 03/03/19 03/03/19 Range/Units 10:23 10:23 WBC (5.0-10.0) 10^3/uL RBC (4.2-5.4) 10^6/uL Hgb (12.0-16.0) g/dL Hct (37.0-47.0) % MCV (80-100) fL MCH (27.0-34.0) pg MCHC (33.0-35.0) g/dL Plt Count (150-450) 10^3/uL Neut % (Auto) (42.2-75.2) % Lymph % (Auto) (20.5-50.1) % [place] % (Auto) (2-8) % Eos % (Auto) (1.0-3.0) % Baso % (Auto) (0.0-1.0) % Sodium (135-145) mmol/L Potassium (3.6-5.0) mmol/L Chloride (101-111) mmol/L Carbon Dioxide (21.0-31.0) mmol/L Anion Gap BUN (7-18) mg/dL Creatinine (0.6-1.3) mg/dL Est Cr Clr Drug Dosing mL/min Estimated GFR (MDRD) BUN/Creatinine Ratio Glucose (74-105) mg/dL Calcium (8.4-10.2) mg/dl Total Bilirubin (0.2-1.0) mg/dL AST (10-42) IU/L ALT (10-60) IU/L Alkaline Phosphatase (42-121) IU/L C-Reactive Protein (0.0-1.3) mg/dL Total Protein (6.7-8.2) g/dl Albumin (3.2-5.5) g/dl Globulin Albumin/Globulin Ratio Urine Color Yellow (YELLOW) Urine Appearance Clear (CLEAR) Urine pH 7.0 (5.0-9.0) Ur Specific [place] 1.015 (1.005-1.030) Urine Protein Negative (NEGATIVE) Urine Glucose (UA) Negative (NEGATIVE) Urine Ketones Negative (NEGATIVE) Urine Occult Blood Negative (NEGATIVE) Urine Nitrite Negative (NEGATIVE) Urine Bilirubin Negative (NEGATIVE) Urine Urobilinogen 0.2 (0.2-1.0) mg/dL Ur Leukocyte Esterase Negative (NEGATIVE) Urine HCG, Qual Negative Meds: Medications Generic Name Dose Route Start Last Admin Trade Name Thao PRN Reason Stop Dose Admin Sodium Chloride 10 ml 03/03/19 09:18 Saline Flush FLUSH ASDIRECTED PRN Keep Vein Open Discontinued Medications Generic Name Dose Route Start Last Admin Trade Name Thao PRN Reason Stop Dose Admin Dexamethasone 20 mg 03/03/19 09:19 03/03/19 09:30 Dexamethasone IVPUSH 03/03/19 09:20 20 mg ONETIME ONE Administration Gadobenate Dimeglumine 20 ml 03/03/19 10:01 03/03/19 11:56 Multihance IVPUSH 03/03/19 10:02 20 ml ONETIME ONE Administration Sodium Chloride 1,000 mls @ 999 mls/hr 03/03/19 09:19 03/03/19 13:34 Normal Saline IV 03/03/19 10:19 Not Given .BOLUS ONE Morphine Sulfate 4 mg 03/03/19 09:18 03/03/19 09:28 Morphine IVPUSH 03/03/19 09:19 4 mg ONETIME ONE Administration Morphine Sulfate 4 mg 03/03/19 09:45 03/03/19 09:50 Morphine IVPUSH 03/03/19 09:46 4 mg ONETIME ONE Administration Morphine Sulfate 2 mg 03/03/19 10:17 03/03/19 10:25 Morphine IVPUSH 03/03/19 10:18 2 mg ONETIME ONE Administration Morphine Sulfate 4 mg 03/03/19 12:31 03/03/19 12:41 Morphine IVPUSH 03/03/19 12:32 4 mg ONETIME ONE Administration Ondansetron HCl 4 mg 03/03/19 09:18 03/03/19 09:26 Zofran IV 03/03/19 09:19 4 mg ONETIME ONE Administration - Radiology Interpretation Free Text/Narrative:: CT HEAD WITHOUT CONTRAST: Status post surgery for Chiari malformation. 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 MRI of the cervical spine could further evaluate. No acute intracranial injury demonstrated. No evidence of acute cortical infarct. No mass effect. No edema. Followup as clinically warranted. See rad report. CERVICAL SPINE CT: Status post surgery for Chiari malformation. There has been a suboccipital craniotomy and resection of a portion of the posterior neural arch at C1. Prominent CSF inferior to the cerebellum and posterior to the C1 level. MRI of the cervical spine could further evaluate if felt clinically warranted. No evidence of acute cervical spine fracture. No prevertebral soft tissue swelling. No blood within the central canal. No post-traumatic central canal stenosis. If the patient has any s/s relation to the cord of if otherwise clinically warranted, correlation with MRI could be considered. - Re-Assessments/Exams Free Text/Narrative Re-Assessment/Exam: Per conversation Dr. Olivares had with Dr. Lucero, MRI order entered d/t concern of pain related to hx of Chiari malformation. Patient and patient's mother in agreement with and have understanding of care plan. Departure - Departure Disposition: Home, Self-Care 01 Clinical Impression: History of Chiari malformation, Pituitary cyst Headache Qualifiers: Headache type: other complicated headache syndrome Qualified Code(s): G44.59 - Other complicated headache syndrome - Discharge Information Instructions: General Headache Without Cause, [id number] Forms: ED Department Discharge Additional Instructions: Rx: Oxycodone APAP 5mg/325mg *Do not drive or work while under the influence of this medication. Rx: Zofran 4mg Take 20 to 30 minutes before taking Oxycodone. Follow up with [facility] for a neurology evaluation. - My Orders Last 24 Hours: My Active Orders 03/03/19 09:17 Peripheral IV Insertion Adult [OM.PC] Stat 03/03/19 09:18 Peripheral IV Care [RC] . DIRECTED Sodium Chloride 0.9% [Saline Flush] 10 ml FLUSH ASDIRECTED PRN 03/03/19 09:53 Brain w Cont [MR] Stat 03/03/19 10:24 Cervical Spine Comp w Cont [MR] Stat - Assessment/Plan Last 24 Hours: My Active Orders 03/03/19 09:17 Peripheral IV Insertion Adult [OM.PC] Stat 03/03/19 09:18 Peripheral IV Care [RC] . DIRECTED Sodium Chloride 0.9% [Saline Flush] 10 ml FLUSH ASDIRECTED PRN 03/03/19 09:53 Brain w Cont [MR] Stat 03/03/19 10:24 Cervical Spine Comp w Cont [MR] Stat <Karlo Olivares - Last Filed: 03/03/19 14:45> ED HPI GENERAL MEDICAL PROBLEM - General Source of Information: Reports: Family, Old Records, Provider (Dr. Lucero, [facility] neurosurgeon), RN, RN Notes Reviewed Past Medical History Neurological History: Reports: Headaches, Chronic, Other (See Below) (Pituitary tumor) - Past Surgical History Head Surgeries/Procedures: Reports: Other (See Below) (Chiari malformation repair) Social & Family History - Family History Family Medical History: Noncontributory - Living Situation & Occupation Living situation: Reports: with Family Occupation: Employed Course - Radiology Interpretation Free Text/Narrative:: [facility] [place] [facility] Final Radiology Report Call: [phone] assistance Online chat: [email or web address] Name: ESSENCE ZAMORA Age: 18Years F Date: 03/03/2019 SSN: -- : 2000 Study: MR BRAIN W Requesting Physician: KARLO OLIVARES Images: 124 Addl Studies: Provided Clinical History: HX CHIARI MALFORMATION, SEVERE HEADACHE Contrast: With Contrast Medium: MULTIHANCE Contrast Amount: 18 mL Contrast Method: LAC Page 1 of 2 EXAM: MR Head With Contrast EXAM DATE/TIME: 03/03/2019 10:23 AM CLINICAL HISTORY: 18 years old, female; Pain; Headache not specified; Additional info: HX chiari malformation, severe headache TECHNIQUE: Imaging protocol: MR of the head with intravenous contrast. Contrast material: MULTIHANCE; Contrast volume: 18 ml; Contrast route: LAC; COMPARISON: CT Head wo Cont 03/03/2019 9:42 AM FINDINGS: Brain: There is enhancement in multiple sulci. Some of this appearance could be vascular. However, there are other areas that are more smudgy appearance as well as areas of parallel enhancement along margins and sulci concerning for mild leptomeningeal enhance. This can be seen with infectious etiologies correlate for meningitis. There is no evidence of acute intracranial hemorrhage. No diffusion weighted images are provided. There is no mass effect or midline shift. Ventricles: No ventriculomegaly or hydrocephalus. Bones/joints: There are postoperative changes with resection of inferior occipital bone and posterior arch of C1 related to Chiari I decompression. 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 Soft tissues: Unremarkable as visualized. Sinuses: There is mucosal thickening in paranasal sinuses. No air-fluid levels. No acute sinusitis. Mastoid air cells: No significant mastoid effusion. ESSENCE ZAMORA | Final Radiology Report CONFIDENTIALITY STATEMENT This report is intended only for use by the referring physician, and only in accordance with law. If you received this in error, call [phone]. Page 2 of 2 Orbits: Unremarkable as visualized. No exophthalmos or evidence of mass. IMPRESSION: Enhancement within sulci appears partially vascular related to flow compensation technique. However, there are other areas that do not have appearance of vascular structures and are more likely enhancement of pial margins along sulci. Given the suggestion of leptomeningeal enhancement, consider infectious/inflammatory etiologies such as related to meningitis. Given patient's history of 2 week headache, this could also be reactive pial enhancement related to prior subarachnoid hemorrhage. Recommend CSF analysis. Critical results: THIS REPORT CONTAINS FINDINGS THAT MAY BE CRITICAL / URGENT TO PATIENT CARE. The findings were verbally communicated via telephone conference with KARLO OLIVARES at 11:47 AM CDT on 03/03/2019. The findings were acknowledged and understood. Thank you for allowing us to participate in the care of your patient. Dictated and Authenticated by: Mayi Patel MD 03/03/2019 11:48 AM Central Time ([place] & [place]) [facility] Final Radiology Report Call: [phone] assistance Online chat: [email or web address] Name: ESSENCE ZAMORA Age: 18Years F Date: 03/03/2019 SSN: -- : 2000 Study: MR SPINE CERVICAL WO Requesting Physician: KARLO OLIVARES Images: 1 Addl Studies: Provided Clinical History: HX CHIARI MALFORMATION, SEVERE HEADACHE Contrast: Without Contrast Medium: Contrast Amount: Contrast Method: Page 1 of 2 EXAM: MR Cervical Spine Without Contrast EXAM DATE/TIME: 03/03/2019 11:09 AM CLINICAL HISTORY: 18 years old, female; Signs and symptoms; Other: Severe headache, abnormal CT, pseudomeningocele; Prior surgery; Surgery date: 6+ months; Surgery type: Chiari decompression December 2017; Additional info: HX chiari malformation, severe headache TECHNIQUE: Imaging protocol: Multiplanar magnetic resonance images of the cervical spine without contrast. COMPARISON: CT Cervical Spine wo Cont 03/03/2019 9:42 AM FINDINGS: There is occipital and suboccipital decompression with resection of portion inferior posterior occipital bone and posterior arch of C1. There is stable suboccipital fluid collection at the bone resection site consistent with pseudomeningocele. The cervical spine is normal in position and alignment. Cervical spinal cord signal is normal without intrinsic or extrinsic lesions. There is no evidence of abnormal contrast enhancement along or within the substance of the spinal cord. Disc heights are well-preserved. No evidence of dehydration is seen. Vertebral body marrow signal is unremarkable. Axial images: C2-C3: There is no significant disc bulge. There is no significant cord compression. There is no neural foraminal or spinal stenosis. C3-C4: There is no significant disc bulge. There is no significant cord compression. There is no neural foraminal or spinal stenosis. ESSENCE ZAMORA | Final Radiology Report CONFIDENTIALITY STATEMENT This report is intended only for use by the referring physician, and only in accordance with law. If you received this in error, call [phone]. Page 2 of 2 C4-C5: There is no significant disc bulge. There is no significant cord compression. There is no neural foraminal or spinal stenosis. C5-C6: There is no significant disc bulge. There is no significant cord compression. There is no neural foraminal or spinal stenosis. C6-C7: There is no significant disc bulge. There is no significant cord compression. There is no neural foraminal or spinal stenosis. C7-T1: There is no significant disc bulge. There is no significant cord compression. There is no neural foraminal or spinal stenosis. IMPRESSION: 1. 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 2. No abnormal enhancement along or within spinal cord. 3. No disc disease, spinal stenosis, or neural foraminal narrowing. Thank you for allowing us to participate in the care of your patient. Dictated and Authenticated by: Mayi Patel MD 03/03/2019 11:52 AM Central Time ([place] & [place]) - Re-Assessments/Exams Free Text/Narrative Re-Assessment/Exam: 03/03/19 12:09 I personally performed or re-performed the physical examination and medical decision making. I have verified all student documentation or findings, including history, physical exam and/or medical decision making. 03/03/19 14:24 Pt much improved following tx in ER with Morphine. Dr. Lucero ([facility] neurosurgeon), who has reviewed the case with me, and has reviewed the CT and MRI brain and C-spine images and finds the images stable. He feels the pt may be safely d/c'd home, and will facilitate a referral to a neurologist for headache evaluation and management. Departure - Departure Time of Disposition: 14:35 Condition: Good - Discharge Information *PRESCRIPTION DRUG MONITORING PROGRAM REVIEWED*: No *COPY OF PRESCRIPTION DRUG MONITORING REPORT IN PATIENT [place]: No
[2019-03-03] MEDS ORDERED: Morphine 4 MG/ML Syringe IVPUSH ONE ×2 (09:45→12:31)
[2019-03-03] MEDS ORDERED: Gadobenate Dimeglumine 529 MG/ML 20 ML SDV IVPUSH ONE (10:01)
[2019-03-03] MEDS ORDERED: Morphine 2 MG/ML Syringe IVPUSH ONE (10:17)
[2019-03-03 10:18] LABS: ANION GAP 14.9; CHLORIDE,CL 106 mmol/L (101-111); SODIUM,NA 137 mmol/L (135-145)
[2019-03-03 13:39] VITALS: BP 121/66
== END 2019-03-03 15:00 | disposition home or self-care (01) ==
LOC: DL.ED 09:24
DX: E23.6 Other disorders of pituitary gland (principal); G44.59 Other complicated headache syndrome; Z88.5 Allergy status to narcotic agent; Z88.8 Allergy status to other drugs, medicaments and biological substances; Z79.899 Other long term (current) drug therapy; Z87.798 Personal history of other (corrected) congenital malformations
CPT/HCPCS: 36415; 70450; 70552; 72125; 72142; 80053; 81003; 81025; 85025; 86140; 96374; 96375; 96376; 99284; A9577; J1100; J2270; J2405

== ENCOUNTER 2020-06-02 11:54 | Emergency (ER) | payer BC ==
[2020-06-02] MEDS ORDERED: Sodium Chloride 0.9% 10 ML Syringe FLUSH PRN (12:23)
--- NOTE | 2020-06-02 12:23 | EDM.PDOC ---
ED HPI GENERAL MEDICAL PROBLEM - General Chief Complaint: Respiratory Problem Stated Complaint: cant breath Time Seen by Provider: 06/02/20 12:23 Source of Information: Reports: Patient, Old Records, RN, RN Notes Reviewed History Limitations: Reports: No Limitations - History of Present Illness INITIAL COMMENTS - FREE TEXT/NARRATIVE: Pt presents to ER by POV with c/o cough, fever, chest hurts, and she feels like she is suffocating. States she has been ill since last (05/26/20). She was seen in clinic and had a negative COVID test on Saturday (05/27/20). She has been using Mucinex, Tylenol, and Albuterol. Fevers are down to 99F in the last couple of days, from 104F last week. Very anxious and crying thinking she is not going to get better. She admits to some vomiting last week, but that has resolved. She has still been having some loose stools. She was nauseated this morning, but not now. Also c/o middle and lower back pain which she states is chronic and due to "kidney issues". 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, Breathing Treatments - Related Data Allergies Allergy/AdvReac Type Severity Reaction Status Date / Time codeine Allergy Vomiting Verified 06/02/20 12:22 hydrocodone Allergy Vomiting Verified 06/02/20 12:22 hydromorphone Allergy Vomiting Verified 06/02/20 12:22 Home Meds: Home Meds Acetaminophen [Tylenol Extra Strength] 500 mg PO DAILY PRN 12/17/18 [History] Albuterol Sulfate [Proair Hfa] 2 puff INH ASDIRECTED PRN 06/02/20 [History] hydrOXYzine HCL [Hydroxyzine HCl] 25 mg PO TID PRN 06/02/20 [History] Past Medical History HEENT History: Reports: None Cardiovascular History: Reports: Other (See Below) Other Cardiovascular History: P.O.T.S. 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: Reports: , Other (See Below) Other FRONT DESK CLERK History: pt states shes 11 weeks Musculoskeletal History: Reports: Other (See Below) Other Musculoskeletal History: RLE PAIN ANKLE/HEEL/FOOT FOR LAST 3 YEARS 12.3 1.15 Neurological History: Reports: Headaches, Chronic, Other (See Below) Other Neuro History: CHIARI, hx brain surgery Psychiatric History: Reports: Anxiety Endocrine/Metabolic History: Reports: None Hematologic History: Reports: Anemia Immunologic History: Reports: None Oncologic (Cancer) History: Reports: None Dermatologic History: Reports: Cellulitis, Other (See Below) Other Dermatologic History: ACNE; CELLULITUS OF FINGER - Infectious Disease History Infectious Disease History: Reports: None - Past Surgical History Head Surgeries/Procedures: Reports: Other (See Below) Social & Family History - Family History Family Medical History: Noncontributory - Tobacco Use Smoking Status *Q: Never Smoker - Caffeine Use Caffeine Use: Reports: Soda - Living Situation & Occupation Living situation: Reports: with Family Occupation: Employed ED ROS GENERAL - Review of Systems Review Of Systems: Comprehensive ROS is negative, except as noted in HPI. ED EXAM, GENERAL - Physical Exam Exam: See Below Exam Limited By: No Limitations General Appearance: Alert, WD/WN, No Apparent Distress, Anxious, Obese, Other (Tearful) Eye Exam: Bilateral Eye: Normal Inspection Ears: Normal External Exam, Normal Canal, Hearing Grossly Normal, Normal TMs Nose: Normal Inspection, Normal Mucosa, No Blood Throat/Mouth: Normal Lips, Normal Oropharynx, Normal Voice, No Airway Compromise, Other (Dry oral mucosa) Head: Atraumatic, Normocephalic Neck: Normal Inspection, Supple, Non-Tender, Full Range of Motion. No: Lymphadenopathy (L), Lymphadenopathy (R) Respiratory/Chest: No Respiratory Distress, No Accessory Muscle Use, Chest Non- Tender, Decreased Breath Sounds, Crackles, Wheezing. No: Rales, Rhonchi, Stridor, Splinting Cardiovascular: Normal Peripheral Pulses, Regular Rate, Rhythm, No Edema, Tachycardia GI/Abdominal: Normal Bowel Sounds, Soft, Non-Tender Back Exam: Normal Inspection Extremities: Normal Inspection, Normal Capillary Refill Neurological: Alert, Oriented, No Motor/Sensory Deficits Psychiatric: Anxious, Tearful Skin Exam: Warm, Dry, Intact, Normal Color, No Rash Course - Vital Signs Last Recorded V/S: Last Vital Signs Temp 99.9 F 06/02/20 12:05 Pulse 121 H 06/02/20 12:35 Resp 20 06/02/20 12:05 BP 127/76 06/02/20 12:05 Pulse Ox 98 06/02/20 12:05 - Orders/Labs/Meds Orders: Active Orders 24 hr Category Date Time Status Peripheral IV Care [RC] . DIRECTED Care 06/02/20 12:24 Active RT Aerosol Therapy [RC] ASDIRECTED Care 06/02/20 12:25 Active Potassium Chloride [KCl 10 MEQ in Water 100 ML] 10 meq Med 06/02/20 13:39 Active Premix Bag 1 bag IV ONETIME Sodium Chloride 0.9% [Saline Flush] Med 06/02/20 12:23 Active 10 ml FLUSH ASDIRECTED PRN Peripheral IV Insertion Adult [OM.PC] Stat Oth 06/02/20 12:23 Ordered Medication Orders Potassium Chloride 10 meq/ (Premix) 100 mls @ 100 mls/hr IV ONETIME ONE Stop: 06/02/20 14:38 Last Admin: 06/02/20 13:58 Dose: 100 mls/hr Documented by: LEA Sodium Chloride (Saline Flush) 10 ml FLUSH ASDIRECTED PRN PRN Reason: Keep Vein Open Last Admin: 06/02/20 12:55 Dose: 10 ml Documented by: LEA Labs: Laboratory Tests 06/02/20 06/02/20 06/02/20 Range/Units 12:51 12:51 12:51 WBC 11.2 H (5.0-10.0) 10^3/uL RBC 4.82 (4.2-5.4) 10^6/uL Hgb 14.5 D (12.0-16.0) g/dL Hct 40.7 (37.0-47.0) % MCV 84.4 D (80-100) fL MCH 30.1 (27.0-34.0) pg MCHC 35.6 H (33.0-35.0) g/dL Plt Count 280 (150-450) 10^3/uL Neut % (Auto) 67.5 (42.2-75.2) % Lymph % (Auto) 25.7 (20.5-50.1) % [place] % (Auto) 5.3 (2-8) % Eos % (Auto) 1.3 (1.0-3.0) % Baso % (Auto) 0.2 (0.0-1.0) % D-Dimer, Quantitative 370 (0-400) ng/mL Sodium 140 (136-145) mmol/L Potassium 2.9 L (3.5-5.1) mmol/L Chloride 102 (98-107) mmol/L Carbon Dioxide 23 (21-32) mmol/L Anion Gap 17.9 H (7-13) mEq/L BUN 9 (7-18) mg/dL Creatinine 0.91 (0.55-1.02) mg/dL Est Cr Clr Drug Dosing 95.10 mL/min Estimated GFR (MDRD) > 60 BUN/Creatinine Ratio 9.9 (No establ ref range) Glucose 104 H (74-99) mg/dL Calcium 9.2 (8.5-10.1) mg/dL Total Bilirubin 0.8 (0.2-1.0) mg/dL AST 18 (15-37) U/L ALT 17 (14-59) U/L Alkaline Phosphatase 90 (46-116) U/L Total Protein 8.1 (6.4-8.2) g/dL Albumin 4.4 (3.4-5.0) g/dL Globulin 3.7 Albumin/Globulin Ratio 1.2 Urine Color (YELLOW) Urine Appearance (CLEAR) Urine pH (5.0-9.0) Ur Specific [place] (1.005-1.030) Urine Protein (NEGATIVE) Urine Glucose (UA) (NEGATIVE) Urine Ketones (NEGATIVE) Urine Occult Blood (NEGATIVE) Urine Nitrite (NEGATIVE) Urine Bilirubin (NEGATIVE) Urine Urobilinogen (0.2-1.0) mg/dL Ur Leukocyte Esterase (NEGATIVE) Urine RBC /HPF Urine WBC (0-5/HPF) /HPF Ur Epithelial Cells (NOT SEEN) /HPF Urine Bacteria (0-FEW/HPF) /HPF Urine Mucus (NOT SEEN) /LPF Urine HCG, Qual 06/02/20 06/02/20 Range/Units 12:53 12:53 WBC (5.0-10.0) 10^3/uL RBC (4.2-5.4) 10^6/uL Hgb (12.0-16.0) g/dL Hct (37.0-47.0) % MCV (80-100) fL MCH (27.0-34.0) pg MCHC (33.0-35.0) g/dL Plt Count (150-450) 10^3/uL Neut % (Auto) (42.2-75.2) % Lymph % (Auto) (20.5-50.1) % [place] % (Auto) (2-8) % Eos % (Auto) (1.0-3.0) % Baso % (Auto) (0.0-1.0) % D-Dimer, Quantitative (0-400) ng/mL Sodium (136-145) mmol/L Potassium (3.5-5.1) mmol/L Chloride (98-107) mmol/L Carbon Dioxide (21-32) mmol/L Anion Gap (7-13) mEq/L BUN (7-18) mg/dL Creatinine (0.55-1.02) mg/dL Est Cr Clr Drug Dosing mL/min Estimated GFR (MDRD) BUN/Creatinine Ratio (No establ ref range) Glucose (74-99) mg/dL Calcium (8.5-10.1) mg/dL Total Bilirubin (0.2-1.0) mg/dL AST (15-37) U/L ALT (14-59) U/L Alkaline Phosphatase (46-116) U/L Total Protein (6.4-8.2) g/dL Albumin (3.4-5.0) g/dL Globulin Albumin/Globulin Ratio Urine Color Dark yellow (YELLOW) Urine Appearance Slightly cloudy (CLEAR) Urine pH 6.0 (5.0-9.0) Ur Specific [place] >= 1.030 (1.005-1.030) Urine Protein >=300 H (NEGATIVE) Urine Glucose (UA) Negative (NEGATIVE) Urine Ketones 40 H (NEGATIVE) Urine Occult Blood Trace-intact H (NEGATIVE) Urine Nitrite Negative (NEGATIVE) Urine Bilirubin Large H (NEGATIVE) Urine Urobilinogen 1.0 (0.2-1.0) mg/dL Ur Leukocyte Esterase Negative (NEGATIVE) Urine RBC Not seen /HPF Urine WBC 0-5 (0-5/HPF) /HPF Ur Epithelial Cells Many H (NOT SEEN) /HPF Urine Bacteria Many H (0-FEW/HPF) /HPF Urine Mucus Many H (NOT SEEN) /LPF Urine HCG, Qual Negative Meds: Medications Generic Name Dose Route Start Last Admin Trade Name Freq PRN Reason Stop Dose Admin Potassium Chloride 10 meq/ 100 mls @ 100 mls/hr 06/02/20 13:39 06/02/20 13:58 Premix IV 06/02/20 14:38 100 mls/hr ONETIME ONE Administration Sodium Chloride 10 ml 06/02/20 12:23 06/02/20 12:55 Saline Flush FLUSH 10 ml ASDIRECTED PRN Administration Keep Vein Open Discontinued Medications Generic Name Dose Route Start Last Admin Trade Name Freq PRN Reason Stop Dose Admin Albuterol/Ipratropium 3 ml 06/02/20 12:24 06/02/20 12:35 Duoneb 3.0-0.5 Mg/3 Ml NEB 06/02/20 12:25 3 ml ONETIME ONE Administration Benzonatate 200 mg 06/02/20 13:28 06/02/20 13:37 Tessalon Perles PO 06/02/20 13:29 200 mg ONETIME ONE Administration Hydroxyzine HCl 25 mg 06/02/20 12:27 06/02/20 12:58 Atarax PO 06/02/20 12:28 25 mg ONETIME ONE Administration Sodium Chloride 1,000 mls @ 999 mls/hr 06/02/20 12:24 06/02/20 12:59 Normal Saline IV 06/02/20 13:24 999 mls/hr .BOLUS ONE Administration Lidocaine HCl 30 ml 06/02/20 13:39 06/02/20 13:59 Xylocaine-Mpf 1% .XX 06/02/20 13:40 30 ml ONETIME ONE Administration Methylprednisolone Sodium Succinate 125 mg 06/02/20 12:24 06/02/20 13:00 Solu-Medrol IVPUSH 06/02/20 12:25 125 mg ONETIME ONE Administration Ondansetron HCl 4 mg 06/02/20 13:38 06/02/20 13:52 Zofran IV 06/02/20 13:39 4 mg ONETIME ONE Administration Potassium Chloride 40 meq 06/02/20 13:38 06/02/20 13:49 Klor-Con 10 PO 06/02/20 13:39 40 meq ONETIME ONE Administration - Radiology Interpretation Free Text/Narrative:: [facility] [place] [facility] Final Radiology Report Call: [phone] assistance Online chat: [email or web address] Name: ESSENCE ZAMORA Age: 19Years F Date: 06/02/2020 SSN: -- : 2000 Study: CR CHEST 2V Requesting Physician: KARLO PHILIPPE Images: 2 Addl Studies: Provided Clinical History: cough, dyspnea Contrast: Contrast Medium: Contrast Amount: Contrast Method: CONFIDENTIALITY STATEMENT This report is intended only for use by the referring physician, and only in accordance with law. If you received this in error, call [phone]. Page 1 of 1 PROCEDURE INFORMATION: Exam: XR Chest, 2 Views Exam date and time: 06/02/2020 1:33 PM Age: 19 years old Clinical indication: Cough and dyspnea; Additional info: Cough, dyspnea TECHNIQUE: Imaging protocol: XR of the chest Views: 2 views. COMPARISON: No relevant prior studies available. FINDINGS: Lungs: Unremarkable. No consolidation. Pleural space: Unremarkable. No pleural effusion. No pneumothorax. Heart/Mediastinum: Unremarkable. No cardiomegaly. Bones/joints: No acute findings. IMPRESSION: No acute findings. Thank you for allowing us to participate in the care of your patient. Dictated and Authenticated by: aTn Guzman MD 06/02/2020 1:59 PM Central Time ([place] & [place]) Departure - Departure Time of Disposition: 15:20 Disposition: Home, Self-Care 01 Condition: Good Clinical Impression: Acute viral bronchitis Exacerbation of asthma Qualifiers: Asthma severity: moderate Asthma persistence: unspecified Qualified Code(s): J45.901 - Unspecified asthma with (acute) exacerbation - Discharge Information *PRESCRIPTION DRUG MONITORING PROGRAM REVIEWED*: Not Applicable *COPY OF PRESCRIPTION DRUG MONITORING REPORT IN PATIENT [place]: Not Applicable Instructions: Acute Bronchitis, Adult, Viral Respiratory Infection, Bronchospasm, Adult Forms: ED Department Discharge Additional Instructions: Rx: Prednisone 20mg Rx: Tessalon Perles 200mg Rx: Potassium KCL 20mEq Drink plenty of water. Use Albuterol Inhaler 2 puffs every 4 hours while awake until cough and wheezing resolve. Follow up in clinic if not improving as expected in 5 to 7 days. Sepsis Event Note (ED) - Focused Exam Vital Signs: Vital Signs Temp Pulse Resp BP Pulse Ox 06/02/20 12:35 121 H 06/02/20 12:05 99.9 F 144 H 20 127/76 98 - My Orders Last 24 Hours: My Active Orders 06/02/20 12:23 Sodium Chloride 0.9% [Saline Flush] 10 ml FLUSH ASDIRECTED PRN Peripheral IV Insertion Adult [OM.PC] Stat 06/02/20 12:24 Peripheral IV Care [RC] . DIRECTED 06/02/20 12:25 RT Aerosol Therapy [RC] ASDIRECTED 06/02/20 13:39 Potassium Chloride [KCl 10 MEQ in Water 100 ML] 10 meq Premix Bag 1 bag IV ONETIME - Assessment/Plan Last 24 Hours: My Active Orders 06/02/20 12:23 Sodium Chloride 0.9% [Saline Flush] 10 ml FLUSH ASDIRECTED PRN Peripheral IV Insertion Adult [OM.PC] Stat 06/02/20 12:24 Peripheral IV Care [RC] . DIRECTED 06/02/20 12:25 RT Aerosol Therapy [RC] ASDIRECTED 06/02/20 13:39 Potassium Chloride [KCl 10 MEQ in Water 100 ML] 10 meq Premix Bag 1 bag IV ONETIME
[2020-06-02] MEDS ORDERED: Albuterol/Ipratropium 3.0-0.5 MG/3 ML Neb Soln NEB ONE (12:24)
[2020-06-02] MEDS ORDERED: Sodium Chloride 0.9% 1,000 ML IV ONE (12:24)
[2020-06-02] MEDS ORDERED: methylPREDNISolone Sodium Succinate 125 MG/2 ML SDV IVPUSH ONE (12:24)
[2020-06-02] MEDS ORDERED: hydrOXYzine HCl 25 MG Tab PO ONE (12:27)
[2020-06-02 13:22] LABS: ANION GAP 17.9 mEq/L (7-13); CHLORIDE,CL 102 mmol/L (98-107); SODIUM,NA 140 mmol/L (136-145)
[2020-06-02] MEDS ORDERED: Benzonatate 100 MG Cap PO ONE (13:28)
[2020-06-02] MEDS ORDERED: Ondansetron 4 MG/2 ML SDV IV ONE (13:38)
[2020-06-02] MEDS ORDERED: Potassium Chloride 10 MEQ Tab.ER PO ONE (13:38)
[2020-06-02] MEDS ORDERED: Potassium Chloride 10 MEQ in Premix Bag 1 BAG IV ONE (13:39)
[2020-06-02] MEDS ORDERED: Lidocaine 1% 30 ML SDV ONE (13:39)
--- NOTE | 2020-06-02 14:00 | CR ---
PROCEDURE INFORMATION: Exam: XR Chest, 2 Views Exam date and time: 06/02/2020 1:33 PM Age: 19 years old Clinical indication: Cough and dyspnea; Additional info: Cough, dyspnea TECHNIQUE: Imaging protocol: XR of the chest Views: 2 views. COMPARISON: No relevant prior studies available. FINDINGS: Lungs: Unremarkable. No consolidation. Pleural space: Unremarkable. No pleural effusion. No pneumothorax. Heart/Mediastinum: Unremarkable. No cardiomegaly. Bones/joints: No acute findings. IMPRESSION: No acute findings.
[2020-06-02 15:11] VITALS: BP 115/63; PULSE 95
== END 2020-06-02 15:20 | disposition home or self-care (01) ==
LOC: DL.ED 11:54
DX: J20.8 Acute bronchitis due to other specified organisms (principal); J45.901 Unspecified asthma with (acute) exacerbation; Z88.5 Allergy status to narcotic agent
CPT/HCPCS: 36415; 71046; 80053; 81001; 81025; 85025; 85379; 94640; 96361; 96365; 96375; 99285; A9270; J2001; J2405; J2930; J3480; J7030; J7620-GY

== ENCOUNTER 2024-07-09 10:53 | Emergency (ER) | payer BC ==
[2024-07-09 11:28] LABS: BASOPHILS PERCENT AUTO 0.2 % (0.0-1.0); EOSINOPHILS PERCENT AUTO 0.3 % (1.0-3.0); HEMATOCRIT 34.8 % (37.0-47.0); HEMOGLOBIN 12.2 g/dL (12.0-16.0); LYMPHOCYTES PERCENT AUTO 13.2 % (20.5-50.1); MEAN CORPUSCULAR HEMOGLOBIN 31.3 pg (27.0-34.0); MEAN CORPUSCULAR HGB CONC 35.1 g/dL (33.0-35.0); MEAN CORPUSCULAR VOLUME 89.2 fL (80-100); MONOCYTES PERCENT AUTO 5.7 % (2-8); NEUTROPHILS PERCENT AUTO 80.6 % (42.2-75.2); PLATELET COUNT,PLT 264 10^3/uL (150-450); WHITE BLOOD CELL COUNT,WBC 12.2 10^3/uL (5.0-10.0)
[2024-07-09] MEDS: Ondansetron 4 MG/2 ML SDV IVPUSH ONE (11:38)
[2024-07-09 11:47] VITALS: BP 128/78; PULSE 96
[2024-07-09 11:47] LABS: ALANINE AMINOTRANSFERASE,ALT 11 U/L (14-59); ALBUMIN 3.5 g/dL (3.4-5.0); ALKALINE PHOSPHATASE 70 U/L (46-116); ANION GAP 15.2 mEq/L (7-13); ASPARTATE AMNIOTRANSFERASE,AST 12 U/L (15-37); BILIRUBIN TOTAL 0.8 mg/dL (0.2-1.0); BLOOD UREA NITROGEN,BUN 7 mg/dL (7-18); BUN/CREATININE RATIO 12.3 (No establ ref range); CALCIUM 8.8 mg/dL (8.5-10.1); CARBON DIOXIDE,CO2 21 mmol/L (21-32); CHLORIDE,CL 101 mmol/L (98-107); CREATININE 0.57 mg/dL (0.55-1.02); GLUCOSE RANDOM 98 mg/dL (70-99); POTASSIUM,K 3.2 mmol/L (3.5-5.1); SODIUM,NA 134 mmol/L (136-145)
[2024-07-09 11:49] LABS: ESTIMATED GFR 129 mL/min (>=60)
[2024-07-09] MEDS: Sodium Chloride 0.9% 1,000 ML IV ONE (12:09)
[2024-07-09] MEDS: Potassium Chloride 10 MEQ in Premix Bag 1 BAG IV ONE (12:09)
[2024-07-09 13:34] LABS: APPEARANCE,URINE CLOUDY (CLEAR); BILIRUBIN,URINE SMALL (NEGATIVE); COLOR,URINE DARK YELLOW (YELLOW); GLUCOSE,URINE 100 (NEGATIVE); KETONES,URINE >=160 (NEGATIVE); LEUKOCYTE ESTERASE,URINE NEGATIVE (NEGATIVE); NITRITE,URINE NEGATIVE (NEGATIVE); OCCULT BLOOD,URINE NEGATIVE (NEGATIVE); PH,URINE 6.5 (5.0-9.0); PROTEIN,URINE 100 (NEGATIVE)
[2024-07-09 14:07] LABS: BACTERIA,URINE MODERATE /HPF (0-FEW/HPF); EPITHELIAL CELLS,URINE MODERATE /HPF (NOT SEEN); MUCUS,URINE MODERATE /LPF (NOT SEEN); RBC,URINE 0-5 /HPF (0-5); WBC,URINE 0-5 /HPF (0-5/HPF)
[2024-07-09] MEDS: Potassium Chloride 10 MEQ Tab.ER PO ONE (14:07)
== END 2024-07-09 14:33 | disposition home or self-care (01) ==
LOC: DL.ED 10:53
DX: O21.0 Mild hyperemesis gravidarum (principal); E87.6 Hypokalemia; J45.909 Unspecified asthma, uncomplicated; Z88.5 Allergy status to narcotic agent; Z3A.15 15 weeks gestation of pregnancy
CPT/HCPCS: 36415; 80053; 81001; 85025; 87804; 96361; 96365; 96375; 99283; 99284-25; A9270-GY; J2405; J3480; J7030; U0002

== ENCOUNTER 2024-12-26 09:43 | Emergency (ER) | payer BC ==
[2024-12-26 10:22] VITALS: BP 123/81; PULSE 86
[2024-12-26] MEDS: Acetaminophen 500 MG Tab PO ONE (11:14)
[2024-12-26] MEDS: Lidocaine/EPINEPHrine/Tetracaine Soln 5 ML Each TOP ONE (11:38)
== END 2024-12-26 12:05 | disposition home or self-care (01) ==
LOC: DL.ED 09:43
DX: G89.18 Other acute postprocedural pain (principal); Z88.6 Allergy status to analgesic agent; Z88.8 Allergy status to other drugs, medicaments and biological substances; Z79.899 Other long term (current) drug therapy
CPT/HCPCS: 99283; A9270